=== PATIENT | female | born 1985 | race Caucasian/White ===

== ENCOUNTER 2018-07-15 07:24 | Inpatient (IN) | payer MEDICAID ==
[~2018-07-15] VITALS: Ht 149.9 cm; Wt 73.9 kg
[2018-07-15] MEDS ORDERED: LACTATED RINGER'S 1,000 ML IV SCH (08:03)
[2018-07-15 08:17] VITALS: Ht 149.9 cm; Wt 73.9 kg
[2018-07-15 08:24] VITALS: BP 125/61; PULSE 72; RESP 18
--- NOTE | 2018-07-15 08:29 | PREAC ---
Date/Time of Note Date/Time of Note DATE: 07/15/18 TIME: 08:27 Anesthesia Eval and Record Evaluation Time Pre-Procedure Interview DATE: 07/15/18 TIME: 08:27 Age 32 Sex female NPO: 8 hrs Preoperative diagnosis repeat c section Planned procedure c section Past Medical History Past Medical History: Includes : : (3), Gestational age: (37) Surgery & Anesthesia Issues No known issue Meds Anticoagulation: No Beta Juanpablo within 24 hr: No Reason Beta Juanpablo not given: Pt. not on B-Juanpablo Current Medications Lactated Ringer's 1,000 ml @ 125 mls/hr Q8H IV ; Start 07/15/18 at 08:03 Oxytocin/Lactated Ringer's 500 ml @ 0 mls/hr ONCE PRN IV .VAGINAL BLEEDING; Start 07/15/18 at 08:30 Methylergonovine Maleate (Methergine) 0.2 mg ONCE PRN IM .VAGINAL BLEEDING; Start 07/15/18 at 08:30 Carboprost Tromethamine (Hemabate) 250 mcg ONCE PRN IM .VAGINAL BLEEDING; Start 07/15/18 at 08:30 Misoprostol (Cytotec) 1,000 mcg ONCE PRN VA .VAGINAL BLEEDING; Start 07/15/18 at 08:30 Oxytocin/Lactated Ringer's 500 ml @ 500 mls/hr ONCE POST IV ; Start 07/15/18 at 08:30 Oxytocin/Lactated Ringer's 500 ml @ 125 mls/hr POST IV ; Start 07/15/18 at 08:30 Meds reviewed: Yes Allergies Coded Allergies: No Known Allergy (Unverified , 07/15/18) Allergies Reviewed: Yes Labs/Studies Labs Reviewed: Reviewed by anesthesiologist Result Diagram: 07/15/18 0735 Laboratory Tests 07/15/18 07:35 test: Positive Studies: ECG (n/a), CXR (n/a) Pre-procedure Exam Airway: Adequate mouth opening Mallampati: Mallampati I Teeth: Normal Lung: Normal Heart: Normal ASA Physical Status ASA physical status: 2 Emergency: None Planned Anesthetic Neuraxial: Spinal, Epidural Planned Pain Management Sub-arachniod narcotics Pre-operative Attestations Prior to commencing anesthesia and surgery, the patient was re-evaluated, there was verification of: *The patient's identity *The results of appropriate recent lab work and preoperative vital signs *The above evaluation not changing prior to induction *Anesthetic plan, risk benefits, alternative and complications discussed with patient/family; questions answered; patient/family understands, accepts and wishes to proceed. JOCELYNE TORRES MD Jul 15, 2018 08:29
[2018-07-15] MEDS ORDERED: METHYLERGONOVINE 0.2 MG INJ IM PRN ×2 (08:30→10:30)
[2018-07-15] MEDS ORDERED: MISOPROSTOL 200 MCG TAB PR PRN ×2 (08:30→10:30)
[2018-07-15] MEDS ORDERED: OXYTOCIN 30 UNITS/LR 500 ML IV PRN ×2 (08:30→10:30)
[2018-07-15] MEDS ORDERED: CARBOPROST 250 MCG INJ IM PRN ×2 (08:30→10:30)
[2018-07-15] MEDS ORDERED: OXYTOCIN 30 UNITS/LR 500 ML IV SCH ×2 (08:30)
[2018-07-15] MEDS ORDERED: CEFAZOLIN 2 GM/50 ML (PMX) 50 ML IVPB ONE (09:00)
[2018-07-15] MEDS ORDERED: ONDANSETRON 4 MG INJ ONE (09:17)
[2018-07-15] MEDS ORDERED: METOCLOPRAMIDE 10 MG INJ ONE (09:17)
[2018-07-15] MEDS ORDERED: morphine SULFATE/PF (10 MG/10 ML) INJ ONE (09:17)
[2018-07-15] MEDS ORDERED: KETOROLAC 30 MG INJ ONE (09:18)
[2018-07-15] MEDS ORDERED: PHENYLephrine 10 MG INJ ONE (09:30)
[2018-07-15] MEDS ORDERED: CITRIC ACID/NA CITRATE 30 ML CUP PO ONE (09:30)
--- NOTE | 2018-07-15 10:14 | OPPN ---
Date/Time of Note Date/Time of Note DATE: 07/15/18 TIME: 10:12 Operative Report Planned Procedure Procedure date Jul 15, 2018 Procedure(s) repeat low transverse CD Performed by see signature line [place] Attorney: RUTH CLARKE M.D. 2nd [place] Attorney none Anesthesiologist: JOCELYNE TORRES MD Pre-procedure diagnosis iup at 39 wks ga, previous CD X 2, desires elective repeat CD, decline [id number] Anesthesia Type: [id number] spinal Post-Procedure Post-procedure diagnosis same Findings a viable femal, 8/9, weight 3,125 grams, normal uterus tubes and ovaries Estimated Blood Loss: 500 - 600 mls (500) Specimen(s) none Grafts/Implant(s) none Complication(s) none JENS WOMACK MD Jul 15, 2018 10:14
[2018-07-15] MEDS ORDERED: OXYTOCIN 30 UNITS/LR 500 ML IV ONE (10:17)
[2018-07-15] MEDS ORDERED: OXYCODONE/ACETAMINOPHEN (5/325) TAB PO PRN ×2 (10:30)
[2018-07-15] MEDS ORDERED: NACL 0.9% 3 ML SYG IV SCH (10:30)
[2018-07-15] MEDS ORDERED: LANOLIN HPA 1 PKT TOP PRN (10:30)
[2018-07-15] MEDS ORDERED: CEFAZOLIN 2 GM/50 ML (PMX) 50 ML IVPB SCH ×2 (10:30→18:00)
--- NOTE | 2018-07-15 10:34 | PAC ---
Date/Time of Note Date/Time of Note DATE: 07/15/18 TIME: 10:34 Post-Anesthesia Notes Post-Anesthesia Note Last documented vital signs Vital Signs Date Temp Pulse Resp B/P (MAP) Pulse Ox O2 O2 Flow FiO2 Time Delivery Rate 07/15/18 98.2 72 18 115/61 99 11:24 (82) Activity: WNL Respiratory function: WNL Cardiovascular function: WNL Mental status: Baseline Pain reasonably controlled: Yes Hydration appropriate: Yes Nausea/Vomiting absent: No JOCELYNE TORRES MD Jul 15, 2018 10:34
[2018-07-15] MEDS: IBUPROFEN 600 MG TAB PO SCH ×3 (12:00→23:35)
[2018-07-15] MEDS ORDERED: NALOXONE (0.4 MG/ML) INJ IV PRN (13:00)
[2018-07-15] MEDS ORDERED: morphine 2 MG INJ IV PRN ×3 (13:00)
[2018-07-15] MEDS ORDERED: morphine (1 MG/ML) 10ML SYRINGE IV PRN ×3 (13:00)
[2018-07-15] MEDS ORDERED: ONDANSETRON 4 MG INJ IV PRN ×2 (13:00)
[2018-07-15] MEDS ORDERED: DIPHENHYDRAMINE 50 MG INJ IV PRN (13:00)
[2018-07-15] MEDS ORDERED: KETOROLAC 30 MG INJ IV PRN (13:00)
[2018-07-15 13:30] VITALS: BP 128/75; PULSE 65; RESP 18
[2018-07-15 14:00] VITALS: BP 101/73; PULSE 68; RESP 18
[2018-07-15 14:42] VITALS: BP 128/76; PULSE 65; RESP 18
[2018-07-15] MEDS: OXYTOCIN 30 UNITS/LR 500 ML IV SCH ×2 (15:03→18:29)
[2018-07-15 15:33] VITALS: BP 120/63; PULSE 68; RESP 18
[2018-07-15] MEDS: CEFAZOLIN 2 GM/50 ML (PMX) 50 ML IVPB SCH (17:28)
[2018-07-15 19:50] VITALS: BP 122/72; PULSE 68; RESP 18
[2018-07-15] MEDS: SENNA/DOCUSATE NA (8.6MG/50MG) TAB PO SCH (21:24)
[2018-07-16 00:09] VITALS: BP 115/69; PULSE 65; RESP 19
[2018-07-16] MEDS: CEFAZOLIN 2 GM/50 ML (PMX) 50 ML IVPB SCH ×3 (02:18→10:00)
[2018-07-16] MEDS ORDERED: LACTATED RINGER'S 1,000 ML IV SCH (03:30)
[2018-07-16] MEDS: KETOROLAC 30 MG INJ IV PRN ×2 (03:58→10:00)
[2018-07-16 04:00] VITALS: BP 100/52; PULSE 76; RESP 18
[2018-07-16] MEDS: IBUPROFEN 600 MG TAB PO SCH ×3 (05:28→17:40)
--- NOTE | 2018-07-16 07:33 | PREOPHP ---
DATE OF ADMISSION: 07/15/2018 HISTORY OF PRESENT ILLNESS: Ms. Alessandra Bliss is a 32-year-old 3, para 2, EDC 07/18/2018 intrauterine at 39 weeks gestational age, admitted today for elective repeat toby arguello. She denies any contractions, vaginal bleeding, or discharge. Her care took place at [facility]. PAST MEDICAL HISTORY: None. MEDICATIONS: vitamins. PAST SURGICAL HISTORY: x2 previous section. OBSTETRIC HISTORY: x2 previous section. GYNECOLOGIC HISTORY: 12, regular 3 to 4 days. Denies any sexually transmitted infections. Sexually active with 1 partner. SOCIAL HISTORY: Denies any smoking, drugs or alcohol. FAMILY HISTORY: None. REVIEW OF SYSTEMS: All within normal except history of present illness. PHYSICAL EXAMINATION: HEENT: Within normal. LUNGS: CTA bilateral. CARDIOVASCULAR: S1, S2, regular rhythm. ABDOMEN: Gravid, nontender. Negative CVA bilateral. EXTREMITIES: Negative edema. No calf tenderness. PELVIC: Vaginal exam deferred. heart tracing category 1. [place]: Occasional contractions. ASSESSMENT: Intrauterine at 39 weeks gestational age, desires elective repeat lillian jackson. Declined vaginal after . PLAN: Consent for repeat delivery. Risks, benefits and alternatives explained. All questi ons were answered. Dictated By: JENS BRICE/GERTRUDIS Conf#: [id number] DID#: [id number]
--- NOTE | 2018-07-16 07:51 | OPR ---
DATE OF OPERATION: 07/15/2018 PREOPERATIVE DIAGNOSES: Intrauterine at 39 weeks gestational age, previous delive ry, desires elective repeat delivery. Declined vaginal after . POSTOPERATIVE DIAGNOSES: Intrauterine at 39 weeks gestational age, previous deliv mariia, desires elective repeat delivery. Declined vaginal after . OPERATION PERFORMED: Repeat low transverse delivery. SURGEON: Jerry Womack M.D. SOFTWARE INSTALLER: Tj Lin M.D. ANESTHESIA: Spinal. COMPLICATIONS: None. ESTIMATED BLOOD LOSS: 500 mL. FINDINGS: A viable female, 8 and 9 respectively at 1 and 5 minutes, weight 3125 grams. Normal uterus, tubes and ovaries. DESCRIPTION OF PROCEDURE: After explaining the risks, benefits and alternatives, the patient and con sent signed in chart, the patient was taken to the operating room where spinal anesthesia was found t o be adequate. She was then prepared and draped in normal sterile fashion in dorsal supine position with a leftward tilt. A Pfannenstiel skin incision was then made with a scalpel and carried to the u nderlying fascia. The fascia was incised in the midline and incision was extended laterally with May o scissors. The superior aspect of the fascial incision was grasped with curved clamps, elevated and the underlying rectus muscles dissected off bluntly. Attention was then turned to the inferior aspe ct of the incision, which in similar fashion was grasped, tented up with curved clamps and the rectus muscle was dissected off bluntly. The rectus muscle was in midline, peritoneum identified , tented up and entered sharply with Metzenbaum scissors. The peritoneal incision was extended super iorly and inferiorly. Good visualization of bladder. The bladder blade was then inserted and the ve sicouterine peritoneum identified, grasped with pickups and sharply with Metzenbaum scissors. This i ncision was extended laterally and the bladder flap created digitally. The bladder blade was then re inserted and lower segment incised in transverse fashion with scalpel. The uterine incision was exte nded laterally. The bladder blade was removed and the infant's head delivered atraumatically. The n ose and mouth were suctioned and cord clamped and cut. [facility]. The placenta was then removed. The uterus was exteriorized and cleared of all clots and debri s. The uterine incision was repaired with 1-0 chromic in a running locked fashion. A second layer o f same suture was used for imbrication and obtained excellent hemostasis. The uterus was returned to the abdomen. The gutters were cleared off all clots. The peritoneum and rectus abdominis muscles r eapproximated with 2-0 Vicryl in interrupted fashion. The fascia was reapproximated with 0 Vicryl in a running fashion. The subcutaneous tissue was reapproximated with 2-0 plain gut in a running fashi on. The skin was closed with absorbable greta. The patient tolerated procedure well. Sponge, lap and needle counts were correct. The patient was taken to recovery room in stable condition. Dictated By: JERRY BRICE/GERTRUDIS Conf#: [id number] DID#: [id number] CC: JERRY WOMACK MD;*EndCC*
[2018-07-16 08:00] VITALS: BP 113/58; PULSE 78; RESP 19
--- NOTE | 2018-07-16 08:36 | OPPN ---
Date/Time of Note Date/Time of Note DATE: 07/16/18 TIME: 08:35 Anesthesia Follow up Anesthesia Follow up Last documented vital signs Vital Signs Date Temp Pulse Resp B/P (MAP) Pulse Ox O2 O2 Flow FiO2 Time Delivery Rate 07/16/18 98.8 76 18 100/52 98 Room Air 04:00 (68) Respiratory function: WNL Cardiovascular function: WNL Comments A 32 year female s/p spinal with duramorph for post op pain POD#1 is doing fine. No pain, itching, N/V, headache, neural deficit. care per surgery JOCELYNE TORRES MD Jul 16, 2018 08:36
[2018-07-16] MEDS: SENNA/DOCUSATE NA (8.6MG/50MG) TAB PO SCH ×2 (10:00→21:18)
--- NOTE | 2018-07-16 12:57 | QN ---
Documentation Comment progress note pod 1 patient seen and evaluated no complaints vs stable afebrile ab soft nt c/d/i no distention extremity no edema no calf tenderness a/ sp cd pod 1 stable afebrile p/ iron supplement encourage ambulation JENS WOMACK MD Jul 16, 2018 12:57
[2018-07-16 16:00] VITALS: BP 118/66; PULSE 72; RESP 19
[2018-07-16 20:00] VITALS: BP 130/75; PULSE 75; RESP 18
[2018-07-16] MEDS: FERROUS SULFATE (EC) 325 MG TAB PO SCH (21:18)
[2018-07-17] MEDS: IBUPROFEN 600 MG TAB PO SCH ×5 (00:07→23:43)
[2018-07-17 04:00] VITALS: BP 120/71; PULSE 65; RESP 17
--- NOTE | 2018-07-17 07:46 | QN ---
Documentation Comment progress note pod 2 patient seen and evaluated no complaints vs stable afebrile ab soft nt c/d/i no distention extremity no edema no calf tenderness a/ sp cd pod 2 stable afebrile p/discharge home tomorrow JENS WOMACK MD Jul 17, 2018 07:46
--- NOTE | 2018-07-17 07:49 | PD.PPDC ---
CONSTRUCTION DRILLER Discharge Instruction Condition [id number] Patient Condition: Vhnlg0i Good Diet [id number] Diet: Cxawl0a Resume Regular Diet Activity/Restrictions [id number] Activity: Jekqs4d Normal Activity May Shower Gotcd1Rf Restrictions: Otgye4c No Exercising No Lifting No Driving No Sexual Activity Nothing in the Vagina No [place] No Tampons, douche Follow-up Follow-up with Physician: 2, Week/Weeks Return to clinic for Qynsf5Ot INTERACTIVE DEVELOPER Instructions: Uhbuv0z Fever greater than 101 Chills Worsening abdominal pain Excessive Vaginal Bleeding More than 2 pads per hour Unable to tolerate diet Rpkie1Ix OB Instructions: Byegd6u Breast Tenderness Depression Blurried Vision Headache Kzlla4Ec Surgical Instructions: Vpwaj9q Incisional Drainage Incisional Redness JENS WOMACK MD Jul 17, 2018 07:49
[2018-07-17 08:00] VITALS: BP 130/84; PULSE 65; RESP 20
[2018-07-17] MEDS: FERROUS SULFATE (EC) 325 MG TAB PO SCH ×2 (08:57→21:18)
[2018-07-17] MEDS: SENNA/DOCUSATE NA (8.6MG/50MG) TAB PO SCH ×2 (08:58→21:18)
[2018-07-17 15:50] VITALS: BP 129/87; PULSE 60; RESP 20
[2018-07-17 20:30] VITALS: BP 113/68; PULSE 68; RESP 17
--- NOTE | 2018-07-18 01:30 | DS ---
DATE OF ADMISSION: 07/15/2018 DATE OF DISCHARGE: 07/18/2018 PRIMARY DIAGNOSES: 1. Intrauterine at 39 weeks gestational age. 2. Previous delivery. 3. Desires elective repeat delivery. 4. Declined vaginal after . PROCEDURE: Repeat low transverse delivery. CONDITION ON DISCHARGE: Stable. ACTIVITY: None per vagina, no lifting x6 weeks. DIET: Regular. MEDICATIONS ON DISCHARGE: 1. Motrin. 2. Iron. 3. Colace. DISCHARGE SUMMARY: Ms. Alessandra Bliss underwent a repeat delivery on 07/15/2018. She busch d a viable female, 8 and 9 respectively at 1 and 5 minutes, weight 3125 grams. She had an unev entful postop day 1 and 2. She was discharged on postop day 3. Her incision is clean, dry, and inta ct. She is ambulating, tolerating diet, positive flatulence, positive bowel movement. She will foll ow up in the clinic in 2 weeks for /postop care. Dictated By: JENS BRICE/GERTRUDIS Conf#: [id number] DID#: [id number]
[2018-07-18 03:53] VITALS: BP 130/64; PULSE 58; RESP 17
[2018-07-18] MEDS: IBUPROFEN 600 MG TAB PO SCH (05:27)
[2018-07-18 08:15] VITALS: BP 122/57; PULSE 70; RESP 18
[2018-07-18] MEDS: SENNA/DOCUSATE NA (8.6MG/50MG) TAB PO SCH (09:36)
[2018-07-18] MEDS: FERROUS SULFATE (EC) 325 MG TAB PO SCH (09:36)
--- NOTE | 2018-07-19 12:20 | DELSUM ---
Delivery Summary A-C Datetime Report Generated by CPN: 07/19/2018 12:20 DELIVERY PERSONNEL Bin Worker: Billy, Bobbi MATERNAL INFORMATION Delivery Anesthesia: Spinal Medications in Delivery: ANCEF 2 GM Delivery QBL (ml): 500 Placenta Cultured: No Maternal Complications: None LABOR SUMMARY EDC: 07/18/2018 00:00 No. Babies in Womb: 1 Attempted: No Labor Anesthesia: None LABOR INFORMATION Reason for Induction: Not Applicable Oxytocin: N/A Group B Beta Strep: Not Done Antibiotics # of Doses: 0 Steroids Given: None Reason Steroids Not Administered: Not Applicable MEMBRANES Membranes Rupture Method: Artificial Rupture of Membranes: 07/15/2018 09:48 Length of Rupture (hr): 0.02 Amniotic Fluid Color: Clear Amniotic Fluid Amount: Moderate Amniotic Fluid Odor: None STAGES OF LABOR Stage 3 hr: 0 Stage 3 min: 0 CSECTION DELIVERY Primary Indication: Repeat Elective CSection Urgency: Elective CSection Incidence: Repeat Labor: N/A Elective: Elective CSection Incision: Lower Uterine Transverse BABY A INFORMATION Infant Delivery Date/Time: 07/15/2018 09:49 Method of Delivery: Born in Route : No : N/A Forceps: N/A Vacuum Extraction: N/A Shoulder Dystocia : No SHOULDER DYSTOCIA BABY A Delivery Date/Time: 07/15/2018 09:49 PRESENTATION/POSITION BABY A Presentation: Cephalic Cephalic Presentation: Vertex Vertex Position: Left Occipital Anterior Breech Presentation: N/A PLACENTA INFORMATION BABY A Placenta Delivery Time : 07/15/2018 09:49 Placenta Method of Delivery: Manual Removal Placenta Status: Delivered SCORES BABY A Heart Rate 1 min: >100 bpm Resp Effort 1 min: Good Cry Reflex Irritability 1 min: Cough/Sneeze/Pulls Away Muscle Tone 1 min: Active Motion Color 1 min: Blue/Pale Resuscitation Effort 1 min: Tactile Stimulation SCORE 1 MIN: 8 Heart Rate 5 min: >100 bpm Resp Effort 5 min: Good Cry Reflex Irritability 5 min: Cough/Sneeze/Pulls Away Muscle Tone 5 min: Active Motion Color 5 min: Body Paraje, Extremit Blue Resuscitation Effort 5 min: N/A SCORE 5 MIN: 9 INFORMATION BABY A Gestational Age at Delivery: 39.4 Gestational Status: Full Term- 39- 40.6 Weeks Infant Outcome : Liveborn Condition : Stable Infant Sex: Female IDENTIFICATION/MEDS BABY A ID Band Number: [id number] ID Band Location: Right Leg; Left Arm Sensor Applied: Yes Sensor Number: [id number] Sensor Location : Cord Clamp Vitamin K Given : Not Given Erythromycin Given: Not Given WEIGHT/LENGTH BABY A Infant Birthweight (gm): 3125 Infant Weight (lb): 6 Infant Weight (oz): 14 Infant Length (in): 19.00 Infant Length (cm): 48.26 CORD INFORMATION BABY A No. Cord Vessels: 3 Nuchal Cord : N/A Cord Blood Taken: Yes Infant Suction: Mouth; Nose ASSESSMENT BABY A Infant Complications: None Physical Findings at Delivery: Within Normal Limits Infant Respirations: Appears Normal Manager Play/ALS Called : No Infant Care By: KYLEE SIMONS AND RT Transferred To: Remains with Mother
== END 2018-07-18 11:50 | disposition home or self-care (01) | DRG 788 ==
LOC: L-D 07:24 → PP1 13:30
PROVIDERS: ADMIT Obstetrics & Gynecology; ATTEND Obstetrics & Gynecology
PROC: 10D00Z1 Extraction of Products of Conception, Low, Open Approach (ICD-10-PCS; principal; 2018-07-15 09:00)
DX: O34.211 Maternal care for low transverse scar from previous cesarean delivery (principal); Z3A.39 39 weeks gestation of pregnancy; Z37.0 Single live birth
CPT/HCPCS: 85025; 85610; 85730; 86592; 86850; 86900; 86901; 87340; 99464; J0690; J1885; J2274; J2405; J2590; J2765; J7120